=== PATIENT | female | born 1980 ===

== ENCOUNTER 2019-04-29 09:50 | Outpatient (CLI) | payer OTHER ==
[2019-04-29] MEDS ORDERED: SYNTHROID100 MCG PO (13:44)
== END 2019-04-29 10:01 | disposition home or self-care (01) ==
LOC: RAD 09:50
DX: E21.0 Primary hyperparathyroidism (principal)

== ENCOUNTER 2019-05-07 06:37 | Day surgery (SDC) | payer OTHER ==
[~2019-05-07 06:37] MED LIST: SYNTHROID100 MCG PO
[2019-05-07] MEDS ORDERED: PERCOCET 5-3251 EACH PO (11:25)
== END 2019-05-07 15:45 | disposition home or self-care (01) ==
LOC: CIR.AMB 06:37
DX: D35.1 Benign neoplasm of parathyroid gland (principal)